=== PATIENT | male | born 1935 | race Caucasian/White ===

== ENCOUNTER 2017-12-24 07:35 | Day surgery (SDC) | payer MEDICARE, OTHER ==
[2017-12-23 12:41] VITALS: BMI 25.9
--- NOTE | 2017-12-24 07:20 | HP ---
SHORT STAY HISTORY AND PHYSICAL DATE OF ADMISSION: 12/24/2017 HISTORY OF PRESENT ILLNESS: This is an 82-year-old male seen by me a year ago because of positive colon testing. He had a colonoscopy and he was also found to have two large polyps in the right colon. One was over the cecum and was large and flat. The patient had another sessile poylp . Both polyps are large and sessile. The patient advised to have repeat colonoscopy this year because of the large sessile polyps over the right colon. At the present time, Mr. Steven has no specific GI symptoms. ALLERGIES: None known. MEDICAL ILLNESSES: 1. Status post cerebrovascular accident . 2. Hyperlipidemia. 3. Chronic kidney disease. 4. Prostate hypertrophy. 5. Kidney stones. 6. Hypertension. SOCIAL HISTORY: Patient does not smoke or drink alcohol. PHYSICAL EXAMINATION: GENERAL: Appears comfortable. VITAL SIGNS: Pulse is 73, blood pressure 127/70. HEENT: Conjunctivae clear. CARDIOVASCULAR SYSTEM: First and second heart sounds normal. LUNGS: Clear to auscultation. ABDOMEN: Soft. No organomegaly. No tenderness. No masses. ADMITTING DIAGNOSIS: An 82-year-old male with two large flat polyps in 2017. The patient comes for repeat colonoscopy today. SELIN
--- NOTE | 2017-12-24 12:38 | OP ---
DATE OF PROCEDURE: 12/24/2017 SURGEON: Sarita Meyers M.D. OPERATIVE PROCEDURE: Colonoscopy with polypectomy. PREOPERATIVE DIAGNOSES: An 82-year-old male who had a colonoscopy and polypectomy in 2017 . He had 2 large sessile polyps, one over the cecum, one over the right colon. Both were removed. Because of the flat polyps he was advised to come back for a colonoscopy this year. POSTOPERATIVE DIAGNOSES: 1. No cecal polyp or any residual polyp seen. 2. A sessile polyp, hepatic flexure, status post polypectomy. 3. Hemorrhoids. 4. Sigmoid diverticulosis. PROCEDURE NOTE: The patient was placed on his left lateral position and was given sedation by Anesth esia Department. A rectal exam was done before the scope was advanced into the rectum. No lesions f elt on rectal exam. A Pentax video colonoscope was introduced into the rectum and advanced all the w ay into the cecum. The appendical opening, ileocecal valve, cecum, no pathology seen. There was no polyp palpable of the cecum. The ascending colon, no pathology seen. The hepatic flexure showed a s mall sessile polyp. This was removed with snare cautery. The transverse colon, splenic flexure, robert cending colon, no pathology seen. The sigmoid colon showed scattered diverticulosis. Rectum showed hemorrhoids. DISCHARGE PLANNING: This is an 82-year-old male who came for colonoscopy because of previo us colonoscopy and polypectomy. The patient underwent a polypectomy of a small polyp in the hepatic flexure. The cecum, no pathology seen. DISCHARGE RECOMMENDATIONS: 1. The patient advised to call me if he develops abdominal pain, fever, rectal bleeding. 2. In the absence of any above symptoms, the patient will come back to me in 2 weeks.
== END 2017-12-24 11:39 | disposition home or self-care (01) ==
LOC: SDC 07:35
PROVIDERS: ATTEND Internal Medicine Gastroenterology
PROC: 0DBL8ZX Excision of Transverse Colon, Via Natural or Artificial Opening Endoscopic, Diagnostic (ICD-10-PCS; principal; 2017-12-24)
DX: Z09 Encounter for follow-up examination after completed treatment for conditions other than malignant neoplasm (principal); K63.5 Polyp of colon; K57.30 Diverticulosis of large intestine without perforation or abscess without bleeding; K64.9 Unspecified hemorrhoids; I12.9 Hypertensive chronic kidney disease with stage 1 through stage 4 chronic kidney disease, or unspecified chronic kidney disease; N18.9 Chronic kidney disease, unspecified; E78.5 Hyperlipidemia, unspecified; N40.0 Benign prostatic hyperplasia without lower urinary tract symptoms; Z86.010 Personal history of colon polyps; Z86.73 Personal history of transient ischemic attack (TIA), and cerebral infarction without residual deficits; Z79.82 Long term (current) use of aspirin; Z79.899 Other long term (current) drug therapy
CPT/HCPCS: 88305

== ENCOUNTER 2018-01-02 13:43 | Outpatient (CLI) | payer MEDICARE, OTHER ==
--- NOTE | 2018-01-02 15:45 | RAD ---
CHEST TWO VIEWS: History: Fever and cough. FINDINGS: No comparison. Cardiac silhouette and pulmonary vasculature are unremarkable. Slight elevation of the left hemidiaph ragm. No confluent airspace consolidation, pneumothorax, or pleural fluid. IMPRESSION: No active cardiopulmonary abnormalities are demonstrated. POS: [facility]
== END 2018-01-02 13:44 | disposition home or self-care (01) ==
LOC: BICRAD 13:43
PROVIDERS: ATTEND Internal Medicine Gastroenterology
DX: R05 Cough (principal); R50.9 Fever, unspecified
CPT/HCPCS: 71046

== ENCOUNTER 2019-05-19 12:22 | Inpatient (IN) | payer MEDICARE, OTHER ==
[2019-05-19 13:44] LABS: #Basophils 0.1 thou/uL (0.0-0.2); #Eosinphils 0.2 thou/uL (0.0-0.7); #Lymphocytes 1.8 thou/uL (1.20-3.40); #Monocytes 0.5 thou/uL (0.11-0.59); %Basophils 0.9 % (0.0-1.0); %Eosinophils 2.2 % (0.0-10.0); %Lymphocytes 20.8 % (21.0-51.0); %Monocytes 5.8 % (0.0-10.0); %Neutrophils 70.4 % (42.0-75.0); Mean Corpuscular HGB CONC 33.7 g/dL (32.0-36.0); Mean Corpuscular Hemoglobin 32.6 pg (27.0-31.0); Mean Corpuscular Volume 96.7 fL (78.0-98.0); Mean Platelet Volume 8.7 fL (7.4-10.4); Platelet Count 221 thou/uL (130-400); RBC Distribution Width 11.9 % (11.5-14.5); Red Blood Cell (RBC) Count 4.59 mill/uL (4.70-6.10); White Blood Cell (WBC) Count 8.6 thou/uL (4.8-10.8)
[2019-05-19 13:46] LABS: INR-International Normal Ratio 1.2; Prothrombin Time 14.7 SEC (12.0-14.7)
--- NOTE | 2019-05-19 13:53 | RAD ---
Exam: Chest one view HISTORY:Syncope Comparison: 01/02/2018 FINDINGS: Cardiac silhouette: Normal Aorta: Atherosclerosis of the aortic knob Pulmonary vessels: Normal Costophrenic angles: Clear LUNGS: No masses or consolidation. Pneumothorax: None Osseous abnormalities: None IMPRESSION: 1. Atherosclerosis 2. No acute cardiopulmonary process.
[2019-05-19 14:16] LABS: Troponin I 0.015 ng/mL (< 0.028)
[2019-05-19 14:20] LABS: ALT (SGPT) 18 U/L (8-55); AST (SGOT) 20 U/L (5-34); Albumin 4.1 g/dL (3.4-4.8); Alkaline Phosphatase 71 U/L (40-110); Anion Gap 13 mmol/L (10-20); BUN (Urea Nitrogen) 18 mg/dL (8.4-25.7); Bilirubin, Total 0.8 mg/dL (0.2-1.2); Calc. Creatinine Clearance 0 mL/min (70-130); Calcium 8.9 mg/dL (7.8-10.44); Carbon Dioxide 26 mmol/L (23-31); Chloride 102 mmol/L (98-107); Estimated GFR-MDRD 54; Globulin 2.8 g/dL (2.4-3.5); Glucose 139 mg/dL (83-110); Potassium 4.7 mmol/L (3.5-5.1); Protein, Total 6.9 g/dL (5.8-8.1); Sodium 136 mmol/L (136-145)
[2019-05-19] MEDS ORDERED: Acetaminophen 325 MG TAB PO PRN (15:02)
[2019-05-19] MEDS ORDERED: Aspirin 325 mg Enteric Coated Tablet PO SCH (15:15)
[2019-05-19 16:46] LABS: Troponin I Less than 0.010 ng/mL (< 0.028)
[2019-05-19] MEDS ORDERED: Magnesium 2 GM/50 ML 2 GM in Premix Bag 1 BAG IVPB SCH (17:30)
[2019-05-19 18:55] LABS: Bacteria/HPF None Seen HPF (None Seen); Bilirubin Negative (Negative); Blood, Urine Negative (Negative); Clarity Clear (Clear); Glucose, Urine (Dipstick) Normal (Negative); Leukocyte 250 Leu/uL (Negative); Nitrite Negative (Negative); Protein, Urine (Dipstick) Negative (Neg-Trace); RBC/HPF 0-3 HPF (0-3); Squamous Epithelial None Seen HPF (0-3); Urobilinogen Normal mg/dL (Less than 2)
[2019-05-19 20:42] LABS: Troponin I Less than 0.010 ng/mL (< 0.028)
[2019-05-19] MEDS: Sotalol HCl 80 MG TAB PO SCH (21:33)
[2019-05-19] MEDS: Apixaban 5 MG TAB PO SCH (21:35)
[2019-05-19] MEDS: Vit A,C & E/Lutein/Minerals Tablet PO SCH (21:35)
[2019-05-19] MEDS: Atorvastatin Calcium 20 MG TAB PO SCH (21:36)
[2019-05-19] MEDS: Amlodipine 10 MG TAB PO SCH (21:36)
[2019-05-19] MEDS: Aspirin Chewable 81 MG TAB PO SCH (21:37)
[2019-05-19] MEDS: Sodium Chloride 0.9% 1,000 ML IV SCH (21:39)
--- NOTE | 2019-05-19 23:10 | HP ---
CHIEF COMPLAINT: Syncope. HISTORY OF PRESENT ILLNESS: Mr. Steven is an 84-year-old male with past medical history of atrial fibrillation, CVA, hypertension, among others, presented to the emergency room after a syncopal episode that happened at home just prior to arrival. As per patient's spouse, the patient finished breakfast and walking over to the kitchen silent when he slumped over a chair and lost consciousness for about ?around a minute. As per the patient's spouse, the patient went apneic for about 1 minute and no chest compressions were delivered. The patient recovered by EMS arrival and currently the patient is asymptomatic. Denies chest pain, shortness of breath, palpitations, or dizziness. Initial workup in the emergency room; EKG showed sinus bradycardia, otherwise no acute finding. The patient is being admitted to hospital for further management. PAST MEDICAL HISTORY: As mentioned above in the history of present illness. PAST SURGICAL HISTORY: 1. Carotid surgery. 2. Hemorrhoids. 3. Skin cancer excision. SOCIAL HISTORY: The patient drinks socially. No smoking history. Lives at home with family. ALLERGIES: NO KNOWN ALLERGIES. HOME MEDICATIONS: Please see home medication reconciliation form for updated medications. REVIEW OF SYSTEMS: Review of 14 systems negative except what is mentioned in the history of present illness. PHYSICAL EXAMINATION: GENERAL: The patient is awake, alert, does not appear to be in acute distress. VITAL SIGNS: Blood pressure 130/73, pulse is 61, respiratory rate is 17, temperature is 98.5. HEAD: Normocephalic, atraumatic. NECK: Supple. No JVD. CHEST: Fair bilateral air entry. HEART: Irregular. ABDOMEN: Soft, nontender. Bowel sounds present. NEUROLOGIC: Awake, alert, and oriented. PSYCHIATRIC: Unable to assess. EXTREMITIES: No clubbing no cyanosis. LABORATORY DATA: Troponin less than 0.01. Potassium is 4.7, hemoglobin is 15. ASSESSMENT AND PLAN: 1. Syncope. 2. Bradycardia. 3. Atrial fibrillation history. 4. History of cerebrovascular accident. 5. Hypertension. PLAN: 1. Admit. 2. Telemetry monitoring. 3. Orthostatic vital signs. 4. 2D echo. 5. Consult the patient's athletic shoe designer for evaluation and further recommendations. 6. Reconcile home medications. 7. DVT prophylaxis as appropriate. 8. Expected length of stay at least 1 midnight if the patient is stable and further workup negative. Job ID: [id number]
[2019-05-19 23:32] VITALS: BMI 27.4
[2019-05-20 05:27] LABS: Hemoglobin 14.1 g/dL (14.0-18.0); Lymphocytes 22 % (21-51); MDiff Complete? YES; Mean Corpuscular HGB CONC 33.8 g/dL (32.0-36.0); Mean Corpuscular Hemoglobin 32.6 pg (27.0-31.0); Mean Corpuscular Volume 96.2 fL (78.0-98.0); Mean Platelet Volume 8.6 fL (7.4-10.4); Monocytes 6 % (0-10); Neutrophil 72 % (42-75); Platelet Count 205 thou/uL (130-400); Platelet Morphology Comment Appears Adequate; RBC Distribution Width 11.8 % (11.5-14.5); RBC Morphology Normal; Red Blood Cell (RBC) Count 4.34 mill/uL (4.70-6.10); White Blood Cell (WBC) Count 9.9 thou/uL (4.8-10.8)
[2019-05-20] MEDS ORDERED: Aspirin 325 mg Enteric Coated Tablet PO SCH (09:00)
[2019-05-20 09:37] LABS: Hemoglobin 14.3 g/dL (14.0-18.0); Platelet Count 216 thou/uL (130-400)
[2019-05-20] MEDS: Cyanocobalamin (Vitamin B-12) 1,000 MCG TAB PO SCH (10:33)
[2019-05-20] MEDS: Finasteride 5 MG TAB PO SCH (10:33)
[2019-05-20] MEDS: Apixaban 5 MG TAB PO SCH (10:33)
[2019-05-20] MEDS: Vit A,C & E/Lutein/Minerals Tablet PO SCH ×2 (10:34→20:25)
[2019-05-20] MEDS: Sotalol HCl 80 MG TAB PO SCH ×2 (10:34→20:25)
[2019-05-20] MEDS: Metamucil PACK PO SCH (10:34)
--- NOTE | 2019-05-20 14:09 | PDOC.HOSPP ---
- Subjective Encounter Date: 05/20/19 Encounter Time: 09:45 Subjective: Patient seen and examined. No new complaints. No overnight events - Objective Vital Signs & Weight: Vital Signs (12 hours) Temp Pulse Resp BP BP Pulse Ox 05/20/19 11:34 98.3 F 58 L 20 141/68 H 98 05/20/19 07:42 98.3 F 56 L 16 129/63 99 05/20/19 04:18 97.7 F 59 L 19 135/65 95 Weight Weight 180 lb 12.465 oz I&O: 05/19/19 05/20/19 05/21/19 06:59 06:59 06:59 Intake Total 1278 Output Total 1825 Balance -547 Result Diagrams: 05/20/19 08:52 05/20/19 08:52 Radiology Reviewed by me: Yes EKG Reviewed by me: Yes Hospitalist ROS - Review of Systems ENT: denies: ear pain, ear discharge, nose pain, nose discharge, nose congestion , mouth pain, mouth swelling, throat pain, throat swelling, other Respiratory: denies: cough, dry, shortness of breath, hemoptysis, SOB with excertion, pleuritic pain, sputum, wheezing, other Cardiovascular: denies: chest pain, palpitations, orthopnea, paroxysmal noc. dyspnea, edema, light headedness, other Gastrointestinal: denies: nausea, vomiting, abdominal pain, diarrhea, constipation, melena, hematochezia, other Genitourinary: denies: dysuria, frequency, incontinence, hematuria, retention, other Musculoskeletal: denies: neck pain, shoulder pain, arm pain, back pain, hand pain, leg pain, foot pain, other - Medication Medications: Active Medications Generic Name Dose Route Start Last Admin Trade Name Freq PRN Reason Stop Dose Admin Amlodipine Besylate 10 mg 05/19/19 21:00 05/19/19 21:36 Norvasc PO 10 mg HS THI Administration Apixaban 5 mg 05/19/19 21:00 05/20/19 10:33 Eliquis PO Not Given BID THI Aspirin 81 mg 05/19/19 21:00 05/19/19 21:37 Aspirin Chewable PO 81 mg HS THI Administration Atorvastatin Calcium 20 mg 05/19/19 21:00 05/19/19 21:36 Lipitor PO 20 mg HS THI Administration Cyanocobalamin 2,500 mcg 05/20/19 09:00 05/20/19 10:33 Vitamin B-12 PO Not Given DAILY [facility] Finasteride 5 mg 05/20/19 09:00 05/20/19 10:33 Proscar PO Not Given DAILY THI Sodium Chloride 1,000 mls @ 40 mls/hr 05/19/19 15:00 05/19/19 21:39 Normal Saline 0.9% IV 1,000 mls .Q24H THI Administration Multivitamins/Minerals 1 tab 05/19/19 21:00 05/20/19 10:34 Ocuvite With Lutein PO Not Given BID THI Psyllium Hydrophilic Mucilloid 1 pk 05/20/19 09:00 05/20/19 10:34 Metamucil PO Not Given DAILY THI Sotalol HCl 40 mg 05/19/19 21:00 05/20/19 10:34 Betapace PO Not Given BID THI - Exam General Appearance: NAD, awake alert Eye: PERRL, anicteric sclera ENT: normocephalic atraumatic, no oropharyngeal lesions Neck: supple, symmetric, no JVD, no thyromegaly Heart: RRR, no murmur, no gallops, no rubs, normal peripheral pulses Respiratory: CTAB, no wheezes, no rales, no ronchi Gastrointestinal: soft, non-tender, non-distended, normal bowel sounds Extremities: no cyanosis, no clubbing, no edema Skin: normal turgor, no lesions, no rashes Neurological: no focal deficits Musculoskeletal: normal tone, normal strength Psychiatric: normal affect, normal behavior, A&O x 3 Hosp A/P (1) Syncope Code(s): R55 - SYNCOPE AND COLLAPSE Status: Acute (2) Bradycardia Code(s): R00.1 - BRADYCARDIA, UNSPECIFIED Status: Acute (3) PAF (paroxysmal atrial fibrillation) Code(s): I48.0 - PAROXYSMAL ATRIAL FIBRILLATION Status: Chronic (4) H/O: CVA (cerebrovascular accident) Code(s): Z86.73 - PRSNL HX OF TIA (TIA), AND CEREB INFRC W/O RESID DEFICITS Status: Chronic (5) Diastolic CHF Code(s): I50.30 - UNSPECIFIED DIASTOLIC (CONGESTIVE) HEART FAILURE Status: Chronic Qualifiers: Heart failure chronicity: chronic Qualified Code(s): I50.32 - Chronic diastolic (congestive) heart failure (6) Essential hypertension Code(s): I10 - ESSENTIAL (PRIMARY) HYPERTENSION Status: Chronic (7) Carotid stenosis, bilateral Code(s): I65.23 - OCCLUSION AND STENOSIS OF BILATERAL CAROTID ARTERIES Status : Chronic (8) Dyslipidemia Code(s): E78.5 - HYPERLIPIDEMIA, UNSPECIFIED Status: Chronic (9) BPH (benign prostatic hyperplasia) Code(s): N40.0 - BENIGN PROSTATIC HYPERPLASIA WITHOUT LOWER URINRY TRACT SYMP Status: Chronic Qualifiers: Lower urinary tract symptom presence: symptoms absent Qualified Code(s): N40.0 - Benign prostatic hyperplasia without lower urinary tract symptoms (10) Chronic anticoagulation Code(s): Z79.01 - CARE HOME (CURRENT) USE OF ANTICOAGULANTS Status: Chronic - Plan old records reviewed/req, plan discussed w/ family echo done result pending cardiology consulted medication reviewed continue symptomatic care
[2019-05-20] MEDS: Sodium Chloride 0.9% 1,000 ML IV SCH (18:18)
[2019-05-20] MEDS ORDERED: Metamucil PACK PO SCH (20:00)
[2019-05-20] MEDS: Amlodipine 10 MG TAB PO SCH (20:26)
[2019-05-20] MEDS: Aspirin Chewable 81 MG TAB PO SCH (20:26)
[2019-05-20] MEDS: Atorvastatin Calcium 20 MG TAB PO SCH (20:26)
--- NOTE | 2019-05-20 20:41 | CON ---
DATE OF CONSULTATION: HISTORY OF PRESENT ILLNESS: Shabbir Steven is an 84-year-old white male, who is followed by Dr. Prakash. In December 2017, he underwent colonoscopy and apparently developed pneumonia after that and then was found to be in atrial fibrillation. He was started on metoprolol 25 b.i.d. and Eliquis 5 b.i.d. His then noted that he had elevated heart rate and he was taken to [facility] and placed on intravenous Cardizem. He was initially placed on sotalol 80 b.i.d. However, approximately 1 to 1-1/2 years ago, the dose of this was reduced to 40 mg b.i.d. due to bradycardia. The patient's states that he has been in atrial fibrillation since this was discovered. He has never undergone cardioversion. However, in review of Dr. Prakash's record from August 28, 2018 and evaluation of the EKG at that time, he was in sinus rhythm and so he is not in chronic atrial fibrillation. He apparently was doing well until he ate breakfast yesterday and was walking in the kitchen then slumped over a chair, and was out for 1 or 2 minutes. The states that he quit breathing and she pounded on his chest. Ultimately, he regained consciousness after being apneic for approximately 1 minute. He was then transferred here. PAST MEDICAL HISTORY: Paroxysmal atrial fibrillation, history of right hemispheric CVA, hypertension, and hyperlipidemia. HOME MEDICATIONS: 1. Sotalol 40 mg b.i.d. 2. Eliquis 5 mg b.i.d. 3. Amlodipine 10 mg at bedtime. 4. Aspirin 81 daily. 5. Atorvastatin 20 at bedtime. 6. Proscar 5 mg daily. 7. Metamucil daily. ALLERGIES: NONE. SOCIAL HISTORY: He does not smoke or drink. PAST SURGICAL HISTORY: Right carotid endarterectomy by Dr. Guerrero and hemorrhoidectomy. SOCIAL HISTORY: He does not smoke. He occasionally drinks. PHYSICAL EXAMINATION: VITAL SIGNS: Blood pressure 145/68 and pulse of 55, sinus rhythm. HEENT: PERRL. NECK: Supple. CHEST: Clear. CARDIAC: S1 and S2 normal without any S3 or S4. There is a 2/6 systolic ejection murmur. Carotid upstrokes normal without bruits. ABDOMEN: Normal bowel sounds without tenderness or organomegaly. EXTREMITIES: Revealed no clubbing, cyanosis, or edema. NEUROLOGIC: Grossly intact. SKIN: Warm and dry. LABORATORY DATA: EKG reveals sinus bradycardia with rate of 49 per minute. No acute changes. Paramedics, EKG revealed heart rate of 49 per minute. Hemoglobin 14.1, hematocrit 41.8, white count 9900, platelets 205,000. INR 1.2. Troponin I is normal. TSH is normal. Sodium 136, potassium 4.7, chloride 102, carbon dioxide 26, BUN 18, and creatinine 1.27. IMPRESSION: 1. Syncopal episode probably due to significant bradycardia. 2. Sick sinus syndrome with severe sinus bradycardia as well as paroxysmal atrial fibrillation. I am told by the that he has been in chronic atrial fibrillation since this was discovered in December 2017; however, when he was seen in August [address] Prakash's office, he was in sinus rhythm and so this appears to be more of a paroxysmal atrial fibrillation. 3. Hypertension. 4. Hypercholesterolemia. 5. History of right hemispheric cerebrovascular accident. 6. Status post right carotid endarterectomy. PLAN: Situation discussed with the patient and his . His last dose of Eliquis apparently was the p.m. dose on May 18. He did not receive a dose this morning and Eliquis will be discontinued. It is recommended that a pacemaker be placed , and risks of pacemaker insertion were discussed including , infection, bleeding , blood clot formation, pneumothorax, requiring chest tube insertion, cardiac tamponade with surgical drainage, reoperation for lead displacement, etc. He will consider this. He will need to be off Eliquis for 48 hours prior to pacemaker implantation. Job ID: [id number] [facility]
[2019-05-21] MEDS: Sotalol HCl 80 MG TAB PO SCH ×2 (07:56→21:41)
[2019-05-21] MEDS: Metamucil PACK PO SCH (07:56)
[2019-05-21] MEDS: Finasteride 5 MG TAB PO SCH ×2 (07:57→08:01)
[2019-05-21] MEDS: Vit A,C & E/Lutein/Minerals Tablet PO SCH ×2 (07:57→21:40)
[2019-05-21] MEDS: Cyanocobalamin (Vitamin B-12) 1,000 MCG TAB PO SCH (07:57)
--- NOTE | 2019-05-21 11:28 | PDOC.HOSPP ---
- Subjective Encounter Date: 05/21/19 Encounter Time: 07:45 Subjective: Patient seen and examined. No new complaints. No overnight events - Objective Vital Signs & Weight: Vital Signs (12 hours) Temp Pulse Resp BP BP Pulse Ox 05/21/19 08:00 98 F 50 L 16 125/58 L 97 05/21/19 07:56 62 05/21/19 04:13 98 F 51 L 14 129/60 98 05/20/19 23:37 98.4 F 55 L 16 117/58 L 99 Weight Weight 180 lb 12.465 oz I&O: 05/20/19 05/21/19 05/22/19 06:59 06:59 06:59 Intake Total 1278 1780 Output Total 1825 Balance -547 1780 Result Diagrams: 05/20/19 08:52 05/20/19 08:52 EKG Reviewed by me: Yes Hospitalist ROS - Review of Systems ENT: denies: ear pain, ear discharge, nose pain, nose discharge, nose congestion , mouth pain, mouth swelling, throat pain, throat swelling, other Respiratory: denies: cough, dry, shortness of breath, hemoptysis, SOB with excertion, pleuritic pain, sputum, wheezing, other Cardiovascular: denies: chest pain, palpitations, orthopnea, paroxysmal noc. dyspnea, edema, light headedness, other Gastrointestinal: denies: nausea, vomiting, abdominal pain, diarrhea, constipation, melena, hematochezia, other Genitourinary: denies: dysuria, frequency, incontinence, hematuria, retention, other Musculoskeletal: denies: neck pain, shoulder pain, arm pain, back pain, hand pain, leg pain, foot pain, other Skin: denies: rash, lesions, valdo, bruising, other - Medication Medications: Active Medications Generic Name Dose Route Start Last Admin Trade Name Freq PRN Reason Stop Dose Admin Amlodipine Besylate 10 mg 05/19/19 21:00 05/20/19 20:26 Norvasc PO 10 mg HS THI Administration Aspirin 81 mg 05/19/19 21:00 05/20/19 20:26 Aspirin Chewable PO 81 mg HS THI Administration Atorvastatin Calcium 20 mg 05/19/19 21:00 05/20/19 20:26 Lipitor PO 20 mg HS THI Administration Cyanocobalamin 2,500 mcg 05/20/19 09:00 05/21/19 07:57 Vitamin B-12 PO 2,500 mcg DAILY THI Administration Finasteride 5 mg 05/20/19 09:00 05/21/19 07:57 Proscar PO 5 mg DAILY THI Administration Finasteride 5 mg 05/21/19 09:00 05/21/19 08:01 Proscar PO Not Given DAILY THI Multivitamins/Minerals 1 tab 05/19/19 21:00 05/21/19 07:57 Ocuvite With Lutein PO 1 tab BID THI Administration Psyllium Hydrophilic Mucilloid 1 pk 05/20/19 09:00 05/21/19 07:56 Metamucil PO 1 pk DAILY THI Administration Sotalol HCl 40 mg 05/19/19 21:00 05/21/19 07:56 Betapace PO 40 mg BID THI Administration - Exam General Appearance: NAD, awake alert Eye: PERRL, anicteric sclera ENT: normocephalic atraumatic, no oropharyngeal lesions Neck: supple, symmetric, no JVD, no thyromegaly Heart: no murmur, no gallops, no rubs Respiratory: CTAB, no wheezes, no rales, no ronchi Gastrointestinal: soft, non-tender, non-distended, normal bowel sounds Extremities: no cyanosis, no clubbing, no edema Skin: normal turgor, no lesions Neurological: no focal deficits Musculoskeletal: normal tone, normal strength Psychiatric: normal affect, normal behavior Hosp A/P (1) Sick sinus syndrome Code(s): I49.5 - SICK SINUS SYNDROME Status: Acute (2) Syncope Code(s): R55 - SYNCOPE AND COLLAPSE Status: Acute (3) Bradycardia Code(s): R00.1 - BRADYCARDIA, UNSPECIFIED Status: Acute (4) PAF (paroxysmal atrial fibrillation) Code(s): I48.0 - PAROXYSMAL ATRIAL FIBRILLATION Status: Chronic (5) H/O: CVA (cerebrovascular accident) Code(s): Z86.73 - PRSNL HX OF TIA (TIA), AND CEREB INFRC W/O RESID DEFICITS Status: Chronic (6) Diastolic CHF Code(s): I50.30 - UNSPECIFIED DIASTOLIC (CONGESTIVE) HEART FAILURE Status: Chronic Qualifiers: Heart failure chronicity: chronic Qualified Code(s): I50.32 - Chronic diastolic (congestive) heart failure (7) Essential hypertension Code(s): I10 - ESSENTIAL (PRIMARY) HYPERTENSION Status: Chronic (8) Carotid stenosis, bilateral Code(s): I65.23 - OCCLUSION AND STENOSIS OF BILATERAL CAROTID ARTERIES Status : Chronic (9) Dyslipidemia Code(s): E78.5 - HYPERLIPIDEMIA, UNSPECIFIED Status: Chronic (10) BPH (benign prostatic hyperplasia) Code(s): N40.0 - BENIGN PROSTATIC HYPERPLASIA WITHOUT LOWER URINRY TRACT SYMP Status: Chronic Qualifiers: Lower urinary tract symptom presence: symptoms absent Qualified Code(s): N40.0 - Benign prostatic hyperplasia without lower urinary tract symptoms (11) Chronic anticoagulation Code(s): Z79.01 - MORTGAGE LOAN OFFICER (CURRENT) USE OF ANTICOAGULANTS Status: Chronic - Plan old records reviewed/req echo done result pending cardiology consulted medication reviewed continue symptomatic care 05/21/19 pt has sick sinus syndrome and cardiology recommended pacemaker brittaney is on hold procedure may be tomorrow if pt agrees if procedure confirmed, will change to inpt status as he will go home may be on saturday after pacemaker
[2019-05-21] MEDS: Amlodipine 5 MG TAB PO SCH (21:40)
[2019-05-21] MEDS: Aspirin Chewable 81 MG TAB PO SCH (21:40)
[2019-05-21] MEDS: Atorvastatin Calcium 20 MG TAB PO SCH (21:40)
[2019-05-22] MEDS ORDERED: CEFAZOLIN 2 GM in Premix Bag 1 BAG IVPB SCH (03:00)
[2019-05-22 05:05] LABS: #Basophils 0.1 thou/uL (0.0-0.2); #Eosinphils 0.3 thou/uL (0.0-0.7); #Lymphocytes 3.4 thou/uL (1.20-3.40); #Monocytes 0.6 thou/uL (0.11-0.59); #Neutrophils 4.5 thou/uL (1.40-6.50); %Basophils 1.4 % (0.0-1.0); %Eosinophils 3.5 % (0.0-10.0); %Lymphocytes 37.7 % (21.0-51.0); %Monocytes 6.9 % (0.0-10.0); %Neutrophils 50.5 % (42.0-75.0); Mean Corpuscular HGB CONC 33.8 g/dL (32.0-36.0); Mean Corpuscular Hemoglobin 32.5 pg (27.0-31.0); Mean Corpuscular Volume 96.2 fL (78.0-98.0); Mean Platelet Volume 8.9 fL (7.4-10.4); Platelet Count 197 thou/uL (130-400); RBC Distribution Width 11.8 % (11.5-14.5); Red Blood Cell (RBC) Count 4.29 mill/uL (4.70-6.10); White Blood Cell (WBC) Count 8.9 thou/uL (4.8-10.8)
[2019-05-22 05:27] LABS: Anion Gap 10 mmol/L (10-20); BUN (Urea Nitrogen) 20 mg/dL (8.4-25.7); Calc. Creatinine Clearance 49 mL/min (70-130); Calcium 8.4 mg/dL (7.8-10.44); Carbon Dioxide 25 mmol/L (23-31); Chloride 104 mmol/L (98-107); Estimated GFR-MDRD 55; Glucose 106 mg/dL (83-110); Potassium 4.2 mmol/L (3.5-5.1); Sodium 135 mmol/L (136-145)
[2019-05-22] MEDS ORDERED: Sodium Chloride 0.9% 1,000 ML IV SCH (06:00)
[2019-05-22] MEDS: Sotalol HCl 80 MG TAB PO SCH ×2 (06:02→20:53)
--- NOTE | 2019-05-22 09:37 | PDOC.HOSPP ---
- Subjective Encounter Date: 05/22/19 Encounter Time: 07:30 Subjective: Patient seen and examined. No new complaints. No overnight events - Objective Vital Signs & Weight: Vital Signs (12 hours) Temp Pulse Resp BP BP BP Pulse Ox 05/22/19 07:10 97.8 F 50 L 16 134/63 98 05/22/19 06:02 54 L 05/22/19 03:50 97.7 F 51 L 18 121/58 L 97 05/22/19 00:07 97.7 F 55 L 16 137/63 98 05/21/19 21:41 57 L 139/66 05/21/19 21:40 57 L 139/66 Weight Weight 178 lb 5.663 oz I&O: 05/21/19 05/22/19 05/23/19 06:59 06:59 06:59 Intake Total 1780 1140 Output Total 500 Balance 1780 640 Result Diagrams: 05/22/19 04:49 05/22/19 04:49 EKG Reviewed by me: Yes Hospitalist ROS - Review of Systems ENT: denies: ear pain, ear discharge, nose pain, nose discharge, nose congestion , mouth pain, mouth swelling, throat pain, throat swelling, other Respiratory: denies: cough, dry, shortness of breath, hemoptysis, SOB with excertion, pleuritic pain, sputum, wheezing, other Cardiovascular: denies: chest pain, palpitations, orthopnea, paroxysmal noc. dyspnea, edema, light headedness, other Gastrointestinal: denies: nausea, vomiting, abdominal pain, diarrhea, constipation, melena, hematochezia, other Genitourinary: denies: dysuria, frequency, incontinence, hematuria, retention, other - Medication Medications: Active Medications Generic Name Dose Route Start Last Admin Trade Name Freq PRN Reason Stop Dose Admin Amlodipine Besylate 5 mg 05/21/19 21:00 05/21/19 21:40 Norvasc PO 5 mg HS THI Administration Aspirin 81 mg 05/19/19 21:00 05/21/19 21:40 Aspirin Chewable PO 81 mg HS THI Administration Atorvastatin Calcium 20 mg 05/19/19 21:00 05/21/19 21:40 Lipitor PO 20 mg HS THI Administration Cyanocobalamin 2,500 mcg 05/20/19 09:00 05/21/19 07:57 Vitamin B-12 PO 2,500 mcg DAILY THI Administration Finasteride 5 mg 05/20/19 09:00 05/21/19 07:57 Proscar PO 5 mg DAILY THI Administration Finasteride 5 mg 05/21/19 09:00 05/21/19 08:01 Proscar PO Not Given DAILY THI Sodium Chloride 1,000 mls @ 100 mls/hr 05/22/19 06:00 05/22/19 06:04 Normal Saline 0.9% IV 1,000 mls .Q10H THI Administration Multivitamins/Minerals 1 tab 05/19/19 21:00 05/21/19 21:40 Ocuvite With Lutein PO 1 tab BID THI Administration Psyllium Hydrophilic Mucilloid 1 pk 05/20/19 09:00 05/21/19 07:56 Metamucil PO 1 pk DAILY THI Administration Sodium Chloride 10 ml 05/21/19 21:00 05/21/19 21:42 Flush - Normal Saline IVF Not Given Q12HR THI Sotalol HCl 40 mg 05/19/19 21:00 05/22/19 06:02 Betapace PO 40 mg BID THI Administration - Exam General Appearance: NAD, awake alert Eye: PERRL, anicteric sclera ENT: normocephalic atraumatic, no oropharyngeal lesions Neck: supple, symmetric, no JVD, no thyromegaly Heart: RRR, no murmur, no gallops, no rubs, normal peripheral pulses Respiratory: CTAB, no wheezes, no rales, no ronchi Gastrointestinal: soft, non-tender, non-distended, normal bowel sounds, no palpable masses, no hepatomegaly Extremities: no edema Skin: normal turgor, no lesions Neurological: no focal deficits Musculoskeletal: normal tone, normal strength Psychiatric: normal affect, normal behavior Hosp A/P (1) Sick sinus syndrome Code(s): I49.5 - SICK SINUS SYNDROME Status: Acute (2) Syncope Code(s): R55 - SYNCOPE AND COLLAPSE Status: Acute (3) Bradycardia Code(s): R00.1 - BRADYCARDIA, UNSPECIFIED Status: Acute (4) PAF (paroxysmal atrial fibrillation) Code(s): I48.0 - PAROXYSMAL ATRIAL FIBRILLATION Status: Chronic (5) H/O: CVA (cerebrovascular accident) Code(s): Z86.73 - PRSNL HX OF TIA (TIA), AND CEREB INFRC W/O RESID DEFICITS Status: Chronic (6) Diastolic CHF Code(s): I50.30 - UNSPECIFIED DIASTOLIC (CONGESTIVE) HEART FAILURE Status: Chronic Qualifiers: Heart failure chronicity: chronic Qualified Code(s): I50.32 - Chronic diastolic (congestive) heart failure (7) Essential hypertension Code(s): I10 - ESSENTIAL (PRIMARY) HYPERTENSION Status: Chronic (8) Carotid stenosis, bilateral Code(s): I65.23 - OCCLUSION AND STENOSIS OF BILATERAL CAROTID ARTERIES Status : Chronic (9) Dyslipidemia Code(s): E78.5 - HYPERLIPIDEMIA, UNSPECIFIED Status: Chronic (10) BPH (benign prostatic hyperplasia) Code(s): N40.0 - BENIGN PROSTATIC HYPERPLASIA WITHOUT LOWER URINRY TRACT SYMP Status: Chronic Qualifiers: Lower urinary tract symptom presence: symptoms absent Qualified Code(s): N40.0 - Benign prostatic hyperplasia without lower urinary tract symptoms (11) Chronic anticoagulation Code(s): Z79.01 - MCC (CURRENT) USE OF ANTICOAGULANTS Status: Chronic - Plan old records reviewed/req, PT/OT echo done result pending cardiology consulted medication reviewed continue symptomatic care 05/21/19 pt has sick sinus syndrome and cardiology recommended pacemaker brittaney is on hold procedure may be tomorrow if pt agrees if procedure confirmed, will change to inpt status as he will go home may be on saturday after pacemaker 05/22/19 today pacemaker procedure possible dc tomorrow after done medication reviewed discussed with
[2019-05-22] MEDS: Cyanocobalamin (Vitamin B-12) 1,000 MCG TAB PO SCH (10:04)
[2019-05-22] MEDS: Finasteride 5 MG TAB PO SCH ×2 (10:05→10:06)
[2019-05-22] MEDS: Vit A,C & E/Lutein/Minerals Tablet PO SCH ×2 (10:05→20:52)
[2019-05-22] MEDS: Metamucil PACK PO SCH (10:06)
[2019-05-22] MEDS ORDERED: Gentamicin 80 MG/2 ML VIAL ONE (13:10)
[2019-05-22] MEDS ORDERED: CEFAZOLIN 1 GM VIAL ONE (13:10)
[2019-05-22] MEDS ORDERED: Midazolam HCl 2 mg/2 ml Vial ONE (13:44)
[2019-05-22] MEDS ORDERED: Fentanyl 100 MCG/2 ML VIAL ONE (13:44)
[2019-05-22] MEDS ORDERED: Lidocaine 1% (PF) 30 ML VIAL ONE ×2 (13:55→13:59)
[2019-05-22] MEDS ORDERED: Ondansetron PF 4 MG/2 ML Vial ONE (15:10)
[2019-05-22] MEDS ORDERED: Acetaminophen/Codeine 30-300mg Tablet PO PRN ×2 (15:11)
--- NOTE | 2019-05-22 15:41 | CCL ---
PERMANENT PACEMAKER INSERTION USING FLUOROSCOPY: 05/22/19 PROCEDURE: Permanent pacemaker placement. INDICATION: Syncope, sick sinus syndrome. Paroxysmal atrial fibrillation. DESCRIPTION OF PROCEDURE: The patient was brought to the Cardiac [facility] and the left subclavian area was prepped and draped. 1% Lidocaine was infiltrated. The patient was given a total of versed 1 mg and fentanyl 50 mg for a total sedation time of 70 minutes with continuous monitoring. 1% Lidocaine was infiltrated. A J-wire was placed into the left subclavian vein. Pacemaker pocket was manufactured using blunt and sharp dissection with electrocautery for hemostasis. An antibiotic solution soaked gauze was placed in the subcutaneous pocket. A second J-wire was placed into the left subclavian vein. Using peel away sheaths, the ventricular and atrial leads were inserted. The ventricular lead was advanced into RV apex and screwed into place. The atrial lead was screwed into the right atrium. The sheaths were then removed. Right ventricular lead - R-wave 4.0, impedance 854, threshold 1.0 volts. Right atrial lead - P-wave 2.6, impedance 638, threshold 0.6 volts. The tabs on the suture tie-downs were removed and both leads were secured in place with 2 sutures of 0 silk. The antibiotic solution soaked gauze was removed from the pocket and this was irrigated with copious amounts of antibiotic solution. The leads were attached to the pacemaker generator and this was placed into the pocket and secured in place with one suture of 0 silk. The incision was then closed using two layers of running 3-0 Vicryl, one layer of running 4-0 Vicryl. Dermabond was placed on the incision. The patient tolerated the procedure well. SELIN
--- NOTE | 2019-05-22 15:57 | RAD ---
Chest one view HISTORY: Cardiac pacer placement COMPARISON: 05/19/2019. FINDINGS: Cardiac silhouette is magnified by projection. Pulmonary vasculature is unremarkable. Media stinum is midline. No lobar consolidation or evidence of pneumothorax. A dually left subclavian cardiac electronic device is now in place with leads overlying the right atrium and right ventricle. teletypesetter monitor leads also overlie the chest. IMPRESSION: Left subclavian cardiac pacemaker is in good radiographic position.
[2019-05-22] MEDS: Atorvastatin Calcium 20 MG TAB PO SCH (20:53)
[2019-05-22] MEDS: Cephalexin 250 MG CAP PO SCH (20:53)
[2019-05-22] MEDS: Amlodipine 5 MG TAB PO SCH (20:53)
[2019-05-22] MEDS: Aspirin Chewable 81 MG TAB PO SCH (20:54)
[2019-05-23] MEDS: Cephalexin 250 MG CAP PO SCH (08:35)
[2019-05-23] MEDS: Vit A,C & E/Lutein/Minerals Tablet PO SCH (08:36)
[2019-05-23] MEDS: Cyanocobalamin (Vitamin B-12) 1,000 MCG TAB PO SCH (08:36)
[2019-05-23] MEDS: Sotalol HCl 80 MG TAB PO SCH (08:36)
[2019-05-23] MEDS: Metamucil PACK PO SCH (08:36)
[2019-05-23] MEDS: Finasteride 5 MG TAB PO SCH ×2 (08:37)
[2019-05-23 09:12] LABS: Hemoglobin 14.2 g/dL (14.0-18.0); Platelet Count 195 thou/uL (130-400)
[2019-05-23 11:53] VITALS: TEMP 98.4
[2019-05-23 12:11] VITALS: BP 135/65
--- NOTE | 2019-05-24 03:00 | DIS ---
DATE OF ADMISSION: 05/21/2019 DATE OF DISCHARGE: 05/23/2019 DISCHARGE DIAGNOSES: Syncope possibly secondary to bradycardia, sick sinus syndrome, atrial fibrillation, status post pacemaker placement, and hypertension. CONSULTATION: Cardiology with Dr. Sal[place] Samuel. PROCEDURE: Pacemaker placement on 05/21/2019. BRIEF HISTORY OF PRESENT ILLNESS: This is an 84-year-old male with a past medical history of CVA, atrial fibrillation, and hypertension, presented to the emergency room after a syncopal episode. The patient had just eaten breakfast and was walking over to the kitchen, when he slumped over his chair and lost consciousness for around a minute. The patient denied any palpitations, chest pain, or shortness of breath previously. The patient's called EMS and performed CPR for about 1 minute. The patient did feel a little bit weak after. The patient had an EKG on admission, which showed sinus bradycardia. Troponin was negative. Chest x-ray was negative. The patient was admitted for further workup. HOSPITAL COURSE: Syncope, possibly secondary to sick sinus syndrome:. The patient was noted to be in normal sinus rhythm. He had an echo done, which showed EF of 60% to 65%, moderate MR, and moderate AR. Cardiology was consulted and compared his records to his outpatient community nutrition educator, Dr. Prakash. The patient was thought to be in paroxysmal atrial fibrillation, and it was thought that bradycardia might have contributed to his syncope. He had a pacemaker placed on 05/21. The patient had no complications from this. He will be discharged with Keflex until the . The patient was advised to resume his Eliquis on Saturday. His sotalol dose was increased to 80 mg twice daily, and his amlodipine was reduced to 5 mg daily. The patient was advised to follow up with his community nutrition educator and PCP in a week. Hypertension: The patient's amlodipine was reduced to 5 mg due to his sotalol increase as mentioned above. DISCHARGE PHYSICAL EXAMINATION: VITAL SIGNS: Temperature 98.4, heart rate 62, respiratory rate 16, O2 saturation 97% on room air, and blood pressure 158/74, which improved to 133/69. GENERAL: The patient is alert, awake, and oriented x3. CVS: Regular rate and rhythm with no murmurs, rubs, or gallops. LUNGS: Clear to auscultation bilaterally. ABDOMEN: Positive bowel sounds, soft, nontender, nondistended. EXTREMITIES: No edema. LABORATORY DATA: CBC on 05/22: Normal. BMP on 05/21: Sodium 135. Rest of BMP unremarkable. LFTs on 05/18: Normal. Troponin I: 0.015, 0.010, 0.010. TSH: 3.6278. UA on 05/18: Shows 7 to 10 white blood cells, 250 leukocyte esterase. IMAGING DATA: Chest x-ray on 05/18: Atherosclerosis. No acute disease. Chest x-ray on 05/21: Left subclavian cardiac pacemaker is in good radiographic position. DISCHARGE CONDITION: Stable. ACTIVITY: As tolerated. Please refer to pacemaker post care instructions. DIET: Heart healthy diet. DISCHARGE MEDICATIONS: New prescriptions: Keflex 250 mg p.o. t.i.d. for a total of 10 days. Medication changes: 1. Sotalol increased to 80 mg p.o. b.i.d. 2. Eliquis on hold and to be resumed on Saturday, the . All other home medications were resumed. DISCHARGE INSTRUCTIONS: The patient should follow up with his PCP in a week and Dr. Prakash in a week. Job ID: [id number] [facility]
== END 2019-05-23 14:12 | disposition home or self-care (01) | DRG 243 ==
LOC: ERS 12:22 → 2SW 15:06 → OBSVTOIN 05-21 15:22
PROVIDERS: ADMIT Internal Medicine; ATTEND Internal Medicine
PROC: 0JH606Z Insertion of Pacemaker, Dual Chamber into Chest Subcutaneous Tissue and Fascia, Open Approach (ICD-10-PCS; principal; 2019-05-22)
PROC: 02H63JZ Insertion of Pacemaker Lead into Right Atrium, Percutaneous Approach (ICD-10-PCS; 2019-05-22)
PROC: 02HK3JZ Insertion of Pacemaker Lead into Right Ventricle, Percutaneous Approach (ICD-10-PCS; 2019-05-22)
DX: I49.5 Sick sinus syndrome (principal); I50.32 Chronic diastolic (congestive) heart failure; I48.0 Paroxysmal atrial fibrillation; Z86.73 Personal history of transient ischemic attack (TIA), and cerebral infarction without residual deficits; I11.0 Hypertensive heart disease with heart failure; E78.5 Hyperlipidemia, unspecified; Z79.01 Long term (current) use of anticoagulants; N40.0 Benign prostatic hyperplasia without lower urinary tract symptoms; I65.23 Occlusion and stenosis of bilateral carotid arteries; E78.00 Pure hypercholesterolemia, unspecified; Z85.828 Personal history of other malignant neoplasm of skin
CPT/HCPCS: 33208; 36415; 71045; 80048; 80053; 81003; 81015; 82565; 83735; 84443; 84484; 85007; 85014; 85018; 85025; 85027; 85049; 85610; 93005; 93010; 93306; 93798; 94760; 99152; 99153; C1785; C1898; J0690; J1580; J2001; J2250; J2405; J3010

== ENCOUNTER 2020-12-27 13:43 | Outpatient (CLI) | payer MEDICARE, OTHER | END 2020-12-27 13:44 | disposition home or self-care (01) | LOC: BICULT 13:43 | PROVIDERS: ATTEND Internal Medicine | DX: I65.22 Occlusion and stenosis of left carotid artery (principal); R42 Dizziness and giddiness | CPT/HCPCS: 93880 ==

== ENCOUNTER 2022-11-27 12:03 | Inpatient (IN) | payer MEDICARE, OTHER ==
[2022-11-27 13:36] LABS: #Basophils 0.1 thou/uL (0.0-0.2); #Eosinphils 0.1 thou/uL (0.0-0.7); #Monocytes 0.6 thou/uL (0.11-0.59); #Neutrophils 6.4 thou/uL (1.40-6.50); %Eosinophils 1.1 % (0.0-10.0); %Lymphocytes 22.6 % (21.0-51.0); %Monocytes 6.1 % (0.0-10.0); %Neutrophils 68.8 % (42.0-75.0); Hematocrit 45.5 % (42.0-52.0); Mean Corpuscular Hemoglobin 31.4 pg (27.0-31.0); Mean Corpuscular Volume 95.2 fl (78.0-98.0); Mean Platelet Volume 10.3 fL (7.4-10.4); Platelet Count 234 10x3/uL (130-400); RBC Distribution Width 13.5 % (11.5-14.5); Red Blood Cell (RBC) Count 4.78 mill/uL (4.70-6.10); White Blood Cell (WBC) Count 9.3 10x3/uL (4.8-10.8)
[2022-11-27 14:07] LABS: Bacteria/HPF None Seen HPF (None Seen); Bilirubin Negative (Negative); Blood, Urine Negative (Negative); CAUTI Indications for Culture Alt mental st,lethar; Clarity Clear (Clear); Glucose, Urine (Dipstick) Normal (Negative); Ketone, Urine Negative (Negative); Leukocyte Negative Leu/uL (Negative); Nitrite Negative (Negative); Protein, Urine (Dipstick) Negative (Neg-Trace); RBC/HPF 0-3 HPF (0-3); Specific Gravity, Urine 1.013 (1.002-1.036); Squamous Epithelial 0-3 HPF (0-3); Urobilinogen Normal mg/dL (Less than 2); WBC/HPF 0-3 HPF (0-3); pH, Urine 6.5 (5.0-9.0)
[2022-11-27 14:08] LABS: ALT (SGPT) 10 U/L (8-55); AST (SGOT) 17 U/L (5-34); Albumin 4.2 g/dL (3.4-4.8); Alkaline Phosphatase 80 U/L (40-110); Anion Gap 14 mmol/L (10-20); BUN (Urea Nitrogen) 20 mg/dL (8.4-25.7); Bilirubin, Total 0.6 mg/dL (0.2-1.2); Calc. Creatinine Clearance 0 mL/min (70-130); Calcium 9.1 mg/dL (7.8-10.44); Carbon Dioxide 26 mmol/L (23-31); Chloride 103 mmol/L (98-107); Estimated GFR 46; Globulin 2.9 g/dL (2.4-3.5); Glucose 113 mg/dL (83-110); Potassium 4.6 mmol/L (3.5-5.1); Protein, Total 7.1 g/dL (5.8-8.1); Sodium 138 mmol/L (136-145)
[2022-11-27 14:11] LABS: Urine Culture Reflex No No
[2022-11-27 14:49] LABS: Troponin I Less than 0.010 ng/mL (< 0.028)
[2022-11-27] MEDS ORDERED: hydrALAZINE 20 MG/ML VIAL SLOW IVP PRN (15:54)
[2022-11-27] MEDS ORDERED: Acetaminophen 650 MG Suppository PR PRN (15:55)
[2022-11-27] MEDS ORDERED: Acetaminophen 325 MG TAB PO PRN (15:55)
[2022-11-27] MEDS ORDERED: Ondansetron ODT 4 MG TAB SL PRN (17:30)
[2022-11-27] MEDS ORDERED: Ondansetron PF 4 MG/2 ML Vial IVP PRN (17:30)
[2022-11-27 17:50] VITALS: BMI 29.0
[2022-11-27] MEDS: Apixaban 5 MG TAB PO SCH (20:40)
[2022-11-27] MEDS: Atorvastatin Calcium 40 MG TAB PO SCH (20:40)
[2022-11-28 05:05] LABS: #Basophils 0.1 thou/uL (0.0-0.2); #Eosinphils 0.1 thou/uL (0.0-0.7); #Monocytes 0.7 thou/uL (0.11-0.59); #Neutrophils 5.5 thou/uL (1.40-6.50); %Eosinophils 1.5 % (0.0-10.0); %Lymphocytes 27.5 % (21.0-51.0); %Monocytes 7.4 % (0.0-10.0); %Neutrophils 62.3 % (42.0-75.0); Hematocrit 40.8 % (42.0-52.0); Hemoglobin 13.7 g/dL (14.0-18.0); Mean Corpuscular HGB CONC 33.6 g/dL (32.0-36.0); Mean Corpuscular Hemoglobin 31.8 pg (27.0-31.0); Mean Corpuscular Volume 94.7 fl (78.0-98.0); Mean Platelet Volume 10.3 fL (7.4-10.4); Platelet Count 200 10x3/uL (130-400); RBC Distribution Width 13.3 % (11.5-14.5); Red Blood Cell (RBC) Count 4.31 mill/uL (4.70-6.10); White Blood Cell (WBC) Count 8.9 10x3/uL (4.8-10.8)
[2022-11-28 07:15] LABS: Anion Gap 12 mmol/L (10-20); BUN (Urea Nitrogen) 16 mg/dL (8.4-25.7); Calc. Creatinine Clearance 59 mL/min (70-130); Calcium 8.7 mg/dL (7.8-10.44); Carbon Dioxide 23 mmol/L (23-31); Cardiac Risk 3.4 (Less than 4.5); Chloride 103 mmol/L (98-107); Cholesterol 131 mg/dl (< 200 Desired); Estimated GFR 63; Glucose 107 mg/dL (83-110); HDL Cholesterol 39 mg/dL (>60 Neg Risk); LDL Cholesterol, Calculated 73 mg/dL; Potassium 4.1 mmol/L (3.5-5.1); Sodium 134 mmol/L (136-145); Triglycerides 97 mg/dL (Less than 150)
[2022-11-28 07:20] LABS: Hemoglobin A1c 5.7 % (4.0-6.0)
[2022-11-28] MEDS ORDERED: Amlodipine 5 MG TAB PO SCH (09:00)
[2022-11-28] MEDS ORDERED: Iopamidol-370 76% 500 ML MDV (1 ML CHARGE) ONE (09:27)
[2022-11-28] MEDS: Sotalol HCl 80 MG TAB PO SCH (10:02)
[2022-11-28] MEDS: Cyanocobalamin (Vitamin B-12) 1,000 MCG TAB PO SCH (10:07)
[2022-11-28] MEDS: Finasteride 5 MG TAB PO SCH (10:08)
[2022-11-28] MEDS: Apixaban 5 MG TAB PO SCH ×2 (10:09→20:25)
[2022-11-28] MEDS: Vit A,C & E/Lutein/Minerals Tablet PO SCH ×2 (10:09→20:25)
[2022-11-28] MEDS: Aspirin 81 mg Enteric Coated Tablet PO SCH (10:09)
[2022-11-28] MEDS: Atorvastatin Calcium 40 MG TAB PO SCH (20:25)
[2022-11-28] MEDS ORDERED: Docusate 100 MG CAP PO PRN (21:19)
[2022-11-29 07:47] LABS: Anion Gap 15 mmol/L (10-20); BUN (Urea Nitrogen) 17 mg/dL (8.4-25.7); Calc. Creatinine Clearance 54 mL/min (70-130); Calcium 9.1 mg/dL (7.8-10.44); Carbon Dioxide 25 mmol/L (23-31); Chloride 101 mmol/L (98-107); Estimated GFR 58; Glucose 114 mg/dL (83-110); Potassium 4.8 mmol/L (3.5-5.1); Sodium 136 mmol/L (136-145)
[2022-11-29] MEDS: Vit A,C & E/Lutein/Minerals Tablet PO SCH (09:44)
[2022-11-29] MEDS: Finasteride 5 MG TAB PO SCH (09:44)
[2022-11-29] MEDS: Cyanocobalamin (Vitamin B-12) 1,000 MCG TAB PO SCH (09:44)
[2022-11-29] MEDS: Aspirin 81 mg Enteric Coated Tablet PO SCH (09:44)
[2022-11-29] MEDS: Apixaban 5 MG TAB PO SCH (09:45)
[2022-11-29] MEDS: Sotalol HCl 80 MG TAB PO SCH (09:46)
[2022-11-29] MEDS ORDERED: Clopidogrel Bisulfate 75 MG TAB PO SCH (12:30)
[2022-11-29 16:19] VITALS: BP 152/89; TEMP 98
[2022-11-30] MEDS ORDERED: Clopidogrel Bisulfate 75 MG TAB PO SCH (09:00)
== END 2022-11-29 16:45 | disposition home or self-care (01) | DRG 68 ==
LOC: ERS 12:03 → 2SE 15:30 → OBSVTOIN 11-28 16:14
PROVIDERS: ADMIT Internal Medicine; ATTEND Internal Medicine
DX: I65.23 Occlusion and stenosis of bilateral carotid arteries (principal); N17.9 Acute kidney failure, unspecified; I50.32 Chronic diastolic (congestive) heart failure; I69.354 Hemiplegia and hemiparesis following cerebral infarction affecting left non-dominant side; I13.0 Hypertensive heart and chronic kidney disease with heart failure and stage 1 through stage 4 chronic kidney disease, or unspecified chronic kidney disease; E87.1 Hypo-osmolality and hyponatremia; G45.9 Transient cerebral ischemic attack, unspecified; E78.5 Hyperlipidemia, unspecified; I48.91 Unspecified atrial fibrillation; I48.0 Paroxysmal atrial fibrillation; I49.5 Sick sinus syndrome; N40.0 Benign prostatic hyperplasia without lower urinary tract symptoms; N18.30 Chronic kidney disease, stage 3 unspecified; F03.90 Unspecified dementia, unspecified severity, without behavioral disturbance, psychotic disturbance, mood disturbance, and anxiety; R29.90 Unspecified symptoms and signs involving the nervous system; G47.33 Obstructive sleep apnea (adult) (pediatric); Z91.013 Allergy to seafood; Z79.82 Long term (current) use of aspirin; Z79.899 Other long term (current) drug therapy; Z98.890 Other specified postprocedural states; Z95.0 Presence of cardiac pacemaker
CPT/HCPCS: 36415; 70450; 70498; 80048; 80053; 80061; 81001; 83036; 84443; 84484; 85025; 93005; 93306; 93880; Q9967